=== PATIENT | male | born 1955 | race Caucasian/White ===

== ENCOUNTER 2019-07-07 10:21 | Emergency (ER) | payer BC, SELFPAY ==
[2019-07-07 10:37] VITALS: BP 139/89; PULSE 89; RESP 16; TEMP 36.6; O2SAT 98
--- NOTE | 2019-07-07 11:06 | ED.MALEGU ---
HPI - Male Genitourinary General Chief complaint: Urogenital-Male Stated complaint: FLANK PAIN/BLOOD IN URINE Time Seen by Provider: 07/07/19 11:09 Source: patient and RN notes reviewed Mode of arrival: ambulatory Limitations: no limitations History of Present Illness HPI Narrative: 64-year-old male presents with concern for 1 week history right flank pain, hematuria. Reports he has been increasing his fluid intake and drinking cranberry juice, he took Azo last night at 10 PM. He denies nausea, vomiting, abdominal pain. Reports feeling more tired than usual. MD Complaint: other (Flank pain) Related Data Home Medications Medication Instructions Recorded Confirmed lovastatin 20 mg tablet 20 mg PO QPM 03/28/19 07/07/19 metformin 500 mg tablet 500 mg PO BID 03/28/19 07/07/19 Allergies Allergy/AdvReac Type Severity Reaction Status Date / Time No Known Allergies Allergy Verified 07/07/19 10:41 Review of Systems Review of Systems: Narrative: CONSTITUTIONAL: Denies malaise, chills, sweats, or fever. Reports fatigue CARDIOVASCULAR: Denies chest pain, palpitations, or edema. RESPIRATORY: Denies dyspnea. GASTROINTESTINAL: Denies abdominal pain, nausea, vomiting, diarrhea, bloody, or mucous stools. GENITOURINARY: Denies dysuria, frequency, urgency, penile discharge, testicular redness, pain, swelling. Reports right flank pain and hematuria. SKIN: Denies bruising MUSCULOSKELETAL: Reports right flank pain, denies other back pain, myalgia. NEUROLOGIC: Denies numbness, weakness, or headache. All systems reviewed & are unremarkable except as noted in HPI and below PMFSH Social History Social History (System 05/09/19 @ 09:56 by Cece Rosales) Smoking status: Former smoker Smoking end date: 05/03/94 Alcohol intake: current Comments At time of signature, agree with nursing past medical, surgical, social and family history. There is no relevant family history pertinent to the presenting complaint Exam Narrative: Exam Narrative: GENERAL: Well-appearing, well-nourished, and in no acute distress. HEAD: Normocephalic. EYES: PERRLA, conjunctivae clear. NECK: Supple. No lymphadenopathy CHEST: Clear to auscultation. No respiratory distress. HEART: Regular rate and rhythm. No murmur heard. Normal peripheral pulses. ABDOMEN: Soft, nontender upon palpation, nondistended, normal active bowel sounds, no palpable or pulsatile masses, no guarding. No CVA tenderness SKIN: Warm, dry, no rash. NEURO: Alert and oriented x3. PSYCH: Normal mood and affect Course Course Emergency Course: Discussed with patient potential of nephrolithiasis versus urinary tract infection. Discussed limited diagnostic capability at the [facility] and option of transferring to ER following up with his primary care provider for reevaluation. Patient reports he has had an infection in the past, and his symptoms are similar. Patient understands reasons to follow-up in the ER or go to his primary care doctor. Patient is aware of diagnosis, understands and agrees to treatment plan. Anticipatory guidance given. Patient agrees to follow-up as directed and is aware of reasons to seek care at the emergency department. Portions of this record may have been created with voice recognition software Vital Signs Vital signs: Vital Signs Temperature 98 F 07/07/19 10:37 Pulse Rate 89 07/07/19 10:37 Respiratory Rate 16 07/07/19 10:37 Blood Pressure 139/89 07/07/19 10:37 Pulse Oximetry 98 07/07/19 10:37 Temperature 98 F 07/07/19 10:37 Pulse Rate 89 07/07/19 10:37 Respiratory Rate 16 07/07/19 10:37 Blood Pressure 139/89 07/07/19 10:37 Pulse Oximetry 98 07/07/19 10:37 Reviewed. Patient has current diagnosis of hypertension. MDM - Male Genitourinary MDM Narrative Medical decision making narrative: Exam findings and UA show no acute concerns or changes; patient is non-toxic appearing and is in no distress. Patient is appropriat
== END 2019-07-07 11:31 | disposition home or self-care (01) ==
PROVIDERS: Emergency Provider Nurse Practitioner; PCP Emergency Medicine
DX: R10.9 Unspecified abdominal pain (principal); Z87.891 Personal history of nicotine dependence; E78.00 Pure hypercholesterolemia, unspecified; I10 Essential (primary) hypertension; E11.9 Type 2 diabetes mellitus without complications
CPT/HCPCS: 81003; 87086; 99213; G0463

== ENCOUNTER 2020-12-24 02:09 | Day surgery (SDC) | payer MEDICARE, SELFPAY ==
[2020-12-17 14:00] VITALS: BMI 29.0
--- NOTE | 2020-12-23 13:35 | WPDANESEPPF ---
Anes - Initial Pre Proc Eval Procedure: Operation Date: 12/24/20 08:30 Proposed Procedures p Screening Colonoscopy - Matias Giraldo MD Date/Time: 12/23/20 13:35 Surgeon: Matias Giraldo MD Pre Op Diagnosis: neoplasm screening Patient Data Age: 65 Gender: M Height: 1.85 m Weight: 100 kg Allergies Allergy/AdvReac Type Severity Reaction Status Date / Time No Known Allergies Allergy Verified 12/24/20 07:23 Home Medications Medication Instructions Recorded Confirmed Type lovastatin 20 mg tablet 20 mg PO QPM 03/28/19 12/24/20 History metformin 1,000 mg tablet 1,000 mg PO BID #180 tablet 08/20/20 12/24/20 Rx lisinopril-hydrochlorothiazide 1 tablet PO DAILY 12/17/20 12/24/20 History Patient hx anesthesia problems: none Family hx anesthesia problems: none PMFSH Past Medical History Medical History (Updated 12/23/20 @ 13:35 by Felix Castillo DO) Depression Diabetes mellitus HLD (hyperlipidemia) Hypertension Vitamin D deficiency disease Family History Family History Father Cerebrovascular accident Family history of diabetes mellitus in first degree relative Patient's father is Mother Cerebrovascular accident Family history of diabetes mellitus in first degree relative Patient's mother is Sibling Patient's sister is in good health Patient's brother is in good health Social History Social History Smoking packs per day: 1 Smoking cigarettes per day: 20.0 Years smoked: 15 Smoking pack-years: 15.00 Smoking status: Former smoker Tobacco type: cigarettes Smoking end date: 05/03/94 Alcohol intake: current Substance use: current Substance use type: marijuana Other substance usage details: OCC. Living arrangements: with family Spiritual care concerns: No Anes - Eval Final PreProcedure Day of Procedure 12/23/20 13:35 Patient weight: overweight Heart: regular rate and rhythm Lungs: clear to auscultation and normal air movement Airway: Mallampati scale class II Neurological: alert and oriented Last oral intake: >/= 8 hours ASA classification: III Emergent: no Anesthetic plan: proceed Anesthesia type and monitoring: general GIVS and standard monitoring Informed Consent: The patient's anesthetic plan and its attendant risks and benefits were discussed with the patient/family/POA. Questions were solicited and answers provided to the satisfaction of the patient/family/POA.
[2020-12-24 07:24] VITALS: BP 139/98; PULSE 108; RESP 17; TEMP 36; O2SAT 98; BMI 28.5
[2020-12-24] MEDS: LACTATED RINGERS 1,000 ML 150 ML IV CONT (07:29)
[2020-12-24 07:30] LABS: Glucose Point of Care 323 mg/dl (65-105)
--- NOTE | 2020-12-24 07:55 | SUR.PREOP ---
Pt's blood glucose was 323 this morning. Pt takers metformin at home, has not taken in [address] Castillo made aware. No new orders at this time.
--- NOTE | 2020-12-24 08:40 | PM.HPGS ---
History of Present Illness History of Present Illness Consent: Risks, benefits, and alternatives have been discussed and questions answered. Patient agrees to proceed with procedure. Chief complaint: neoplasm screening Narrative: Eder Ballard is a 65 year old male here for screening colonoscopy, last one 10 years ago Review of Systems Constitutional: Constitutional: Denies headache(s) and Denies weakness Eyes: Eyes: Denies blurry vision ENT: Reports Normal hearing present, Denies headache(s) and Denies neck pain Cardiovascular: Cardiovascular: Denies chest pain and Denies dyspnea Respiratory: Respiratory: Denies dyspnea Gastrointestinal: Gastrointestinal: Reports no additional gastrointestinal complaints Genitourinary: Genitourinary: Denies dysuria Musculoskeletal: Musculoskeletal: Denies neck pain Integumentary/Breasts: Skin/Breast: Denies dry skin Neurologic: Reports Normal hearing present, Denies headache(s) and Denies weakness Psychiatric: Psychiatric: Denies anxiety Endocrine: Endocrine: Denies change in body appearance Hematologic/Lymphatic: Hematologic/Lymphatic: Denies easy bleeding Allergic/Immunologic: Allergic/Immunologic: Denies urticaria PMFSH Past Medical History Medical History (Updated 12/23/20 @ 13:35 by Felix Castillo DO) Depression Diabetes mellitus HLD (hyperlipidemia) Hypertension Vitamin D deficiency disease Family History Family History Father Cerebrovascular accident Family history of diabetes mellitus in first degree relative Patient's father is Mother Cerebrovascular accident Family history of diabetes mellitus in first degree relative Patient's mother is Sibling Patient's sister is in good health Patient's brother is in good health Social History Social History Smoking packs per day: 1 Smoking cigarettes per day: 20.0 Years smoked: 15 Smoking pack-years: 15.00 Smoking status: Former smoker Tobacco type: cigarettes Smoking end date: 05/03/94 Alcohol intake: current Substance use: current Substance use type: marijuana Other substance usage details: OCC. Living arrangements: with family Spiritual care concerns: No Meds Home Medications and Allergies Home Medications Medication Instructions Recorded Confirmed Type lovastatin 20 mg tablet 20 mg PO QPM 03/28/19 12/24/20 History metformin 1,000 mg tablet 1,000 mg PO BID #180 tablet 08/20/20 12/24/20 Rx lisinopril-hydrochlorothiazide 1 tablet PO DAILY 12/17/20 12/24/20 History Allergies Allergy/AdvReac Type Severity Reaction Status Date / Time No Known Allergies Allergy Verified 12/24/20 07:23 Vital Signs Vital Signs - 24 hr 12/24/20 07:24 Temperature 96.8 F L Pulse Rate 108 H Respiratory Rate 17 Blood Pressure 139/98 H Pulse Oximetry 98 Exam Const: General: comfortable and no acute distress HENMT: General nose exam: Normal nares present Eyes: General: appearance normal, both eyes and all related structures Neck: Neck: no JVD Resp: Auscultation: clear to auscultation bilaterally Cardio: Rate: regular rate Rhythm: regular rhythm GI: Inspection: non-distended GI Palp: Yes Soft to palpation Skin: General skin exam: normal color Neuro: General: gait normal Speech: normal speech Extrem: General: normal to inspection Psych: Mental Status: mental status grossly normal Assessment and Plan Assessment and plan (1) Colon cancer screening: Code(s): Z12.11 - Encounter for screening for malignant neoplasm of colon Status: Acute Assessment and Plan: colonoscopy
[2020-12-24 09:12] VITALS: BP 101/68; PULSE 84; RESP 25; O2SAT 96
[2020-12-24 09:22] VITALS: BP 111/68; PULSE 71; RESP 21; O2SAT 98
[2020-12-24 09:32] VITALS: BP 100/50; PULSE 79; RESP 16; O2SAT 100
== END 2020-12-24 09:45 | disposition home or self-care (01) ==
PROVIDERS: PCP Emergency Medicine; Visit Provider Internal Medicine Gastroenterology
PROC: 0DJD8ZZ Inspection of Lower Intestinal Tract, Via Natural or Artificial Opening Endoscopic (ICD-10-PCS; CPT 45378; principal; 2020-12-24 08:30)
DX: Z12.11 Encounter for screening for malignant neoplasm of colon (principal); D12.2 Benign neoplasm of ascending colon; D12.5 Benign neoplasm of sigmoid colon; D12.0 Benign neoplasm of cecum; K63.5 Polyp of colon; K57.30 Diverticulosis of large intestine without perforation or abscess without bleeding; K64.8 Other hemorrhoids; F32.9 Major depressive disorder, single episode, unspecified; E11.9 Type 2 diabetes mellitus without complications; E78.5 Hyperlipidemia, unspecified; I10 Essential (primary) hypertension; E55.9 Vitamin D deficiency, unspecified; F17.210 Nicotine dependence, cigarettes, uncomplicated; F12.90 Cannabis use, unspecified, uncomplicated; Z79.84 Long term (current) use of oral hypoglycemic drugs
CPT/HCPCS: 45380; 45385; 82948; 88305; J2704; J7120

== ENCOUNTER 2021-07-14 08:30 | Outpatient (RCR) | payer MEDICARE, SELFPAY ==
[2021-04-18 09:08] VITALS: PULSE 73
== END 2021-07-14 10:03 | disposition home or self-care (01) ==
LOC: ANHCPREHAB 08:30
PROVIDERS: PCP Emergency Medicine; Visit Provider Internal Medicine Cardiovascular Disease
DX: Z95.5 Presence of coronary angioplasty implant and graft (principal)
CPT/HCPCS: 93798

== ENCOUNTER 2022-08-18 11:47 | Outpatient (CLI) | payer MEDICARE, SELFPAY ==
--- NOTE | 2022-08-18 11:56 | ECG_ITS ---
Measurements Intervals [place] Rate: 62 P: 70 [place]: 152 QRS: 44 QRSD: 111 T: 50 QT: 401 QTc: 409 Interpretive Statements SINUS RHYTHM INCOMPLETE RIGHT BUNDLE BRANCH BLOCK [90+ ms QRS DURATION, TERMINAL R IN V1/V2, 40+ ms S IN I/aVL/V4/V5/V6] NO PREVIOUS ECG AVAILABLE FOR COMPARISON Electronically Signed On 08-18-2022 17:59:20 CDT by Arnaldo Barth M.D.
== END 2022-08-18 11:48 | disposition home or self-care (01) ==
PROVIDERS: PCP Emergency Medicine; Visit Provider Emergency Medicine
DX: I49.9 Cardiac arrhythmia, unspecified (principal); I45.10 Unspecified right bundle-branch block
CPT/HCPCS: 93005

== ENCOUNTER 2022-08-24 13:06 | Outpatient (CLI) | payer MEDICARE, SELFPAY ==
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
--- NOTE | ~2022-08-24 | CT_ITS ---
EXAMINATION: CT lung screening DATE: 08/24/2022 13:25 INDICATION: Personal history nicotine dependence, prior smoker with 25 pack year history TECHNIQUE: Computed tomography (CT) of the chest was performed without intravenous contrast. The dose -length product (DLP) was 149.25 mGy-cm. Automated exposure control and iterative reconstruction tech MOMENTFACE SROque were employed. COMPARISON: None FINDINGS: There is mild emphysema. No suspicious pulmonary nodules are identified. No pathologically enlarged thoracic lymph nodes are identified. The heart size is normal. There is calcified coronary a rtery atherosclerosis. Bilateral gynecomastia is noted. There is mild thoracic spondylosis. IMPRESSION: 1. Lung-RADS category 1: Negative. Continue annual screening with noncontrast low-dose chest CT in 12 months. Reviewed, dictated and finalized at location B. IMPRESSION: 1. Lung-RADS category 1: Negative. Continue annual screening with noncontrast l ow-dose chest CT in 12 months.
== END 2022-08-24 13:07 | disposition home or self-care (01) ==
LOC: ANHIMG 13:10
PROVIDERS: PCP Emergency Medicine; Visit Provider Emergency Medicine
DX: G45.9 Transient cerebral ischemic attack, unspecified (principal); Z12.2 Encounter for screening for malignant neoplasm of respiratory organs; Z87.891 Personal history of nicotine dependence
CPT/HCPCS: 70450; 71271

== ENCOUNTER 2024-03-26 08:28 | Emergency (ER) | payer MEDICARE, SELFPAY ==
[2024-03-26] VITALS (7 sets, daily range): BP systolic 131–139; BP diastolic 75–90; PULSE 64–73; RESP 16–18; TEMP 36.4–36.7; O2SAT 97–100
--- NOTE | ~2024-03-26 | XR_ITS ---
EXAMINATION: XR chest 2V DATE: 03/26/2024 09:01 INDICATION: Dizziness and weakness TECHNIQUE: frontal and lateral views of the chest were obtained. COMPARISON: Chest CT dated 08/24/2022 FINDINGS: Unchanged left lower lobar linear discoid atelectasis/scarring on the lateral projection. No other ai rspace opacities, pulmonary edema, pleural effusion or pneumothorax. The cardiomediastinal silhouette is normal. Mild thoracic spondylosis. IMPRESSION: 1. Unchanged mild linear discoid atelectasis/scarring in the basilar left lower lobe. Reviewed, dictated and finalized at location A. ISHING EDITOR
--- NOTE | 2024-03-26 08:37 | ECG_ITS ---
Test Date: 2024-03-26 08:39:45 Measurements Intervals [place] Rate: 72 P: 79 NV: 148 QRS: 62 QRSD: 102 T: 35 QT: 405 QTc: 446 Interpretive Statements SINUS RHYTHM INCOMPLETE RIGHT BUNDLE BRANCH BLOCK BASELINE ARTIFACT- I, II, III, AVR, AVL, AVF, V1-V6 BORDERLINE ECG No previous ECG available for comparison Electronically Signed On 03-27-2024 08:30:28 SURGICAL PHYSICIAN ASSISTANT by Alexander Leal D.O.
[2024-03-26 08:49] LABS: Basophils Percent Auto 0.4 % (0.2-1.2); Eosinophils Absolute Auto 0.1 K/mm3 (0-0.3); Hematocrit 40.6 % (42.0-52.0); Immature Granulocyte Absolute 0.02 K/mm3 (0.00-0.031); Immature Granulocyte Percent A 0.3 % (0-0.5); Lymphocytes Absolute Auto 2.21 K/mm3 (0.9-3.2); Lymphocytes Percent Auto 30.2 % (18.3-44.2); Mean Corpuscular HGB Conc 34.5 g/dl (32-36); Mean Corpuscular Hemoglobin 29.4 pg (26-34); Mean Corpuscular Volume 85.3 fl (80-100); Mean Platelet Volume 9.2 fl (7.4-10.4); Monocytes Absolute Auto 0.7 K/mm3 (0.1-0.6); Monocytes Percent Auto 9.2 % (2.6-8.5); Neutrophils Absolute Auto 4.3 K/mm3 (1.3-6.7); Neutrophils Percent Auto 58.9 % (45.5-73.1); Platelet Count Result 320 k/mm3 (150-375); Red Blood Count 4.76 M/mm3 (4.6-6.20); Red Cell Distribution Width 12.5 % (11.5-14.5); White Blood Count 7.3 K/mm3 (4.5-10.0)
[2024-03-26 08:59] LABS: Alanine Aminotransferase 39 U/L (6-50); Albumin Level 4.4 g/dL (3.5-5.1); Alkaline Phosphatase 41 U/L (38-126); Anion Gap 10 mmol/L (4-12); Aspartate Amino Transferase 32 U/L (17-59); Bilirubin,Total 0.7 mg/dL (0.2-1.3); Blood Urea Nitrogen 19 mg/dL (9-20); Calcium 9.5 mg/dL (8.4-10.2); Carbon Dioxide 21 mmol/L (22-30); Chloride 106 mmol/L (98-107); Estimated CRCL calculation 86 ml/min; Estimated Glomerular Filt Rate > 60; Glucose 202 mg/dL (65-110); Potassium 4.1 mmol/L (3.4-5.0); Sodium 137 mmol/L (137-145)
[2024-03-26] MEDS: ONDANSETRON INJ 4 MG/2 ML VIAL IV PUSH (09:06)
[2024-03-26] MEDS: SODIUM CHLORIDE 0.9% IV 1,000 ML 999 ML IV CONT (09:06)
[2024-03-26] MEDS: MECLIZINE HCL 25 MG TABLET PO (09:06)
--- NOTE | 2024-03-26 10:09 | PC.NURSE ---
Pt states improvement of symptoms after medication
--- NOTE | 2024-03-26 10:30 | PC.NURSE ---
Dr. Metzger performed Elpley maneuver with pt. Pt reports dizziness worsen with maneuvers.
--- NOTE | 2024-03-26 10:33 | ED_ITS ---
HPI - General Adult General Chief complaint: Dizziness Stated complaint: dizzy Time Seen by Provider: 03/26/24 08:37 History of Present Illness HPI narrative: Patient is a 69-year-old male who presents ER with dizziness. Spinning in nature. Associated with feeling flushed and nauseous. Worse with lying backwards. Has had similar symptoms in the past. No alleviating factors today. No focal weakness or numbness in arm or leg. Related Data Home Medications Medication Instructions Recorded Confirmed aspirin 81 mg tablet 81 mg PO DAILY 04/18/21 02/21/24 carvedilol 6.25 mg tablet 6.25 mg PO BID 04/18/21 02/21/24 clopidogrel 75 mg tablet 75 mg PO DAILY 04/18/21 02/21/24 rosuvastatin 40 mg tablet 40 mg PO DAILY 04/18/21 02/21/24 Allergies Allergy/AdvReac Type Severity Reaction Status Date / Time No Known Allergies Allergy Verified 03/26/24 08:29 Review of Systems Review of Systems: All systems reviewed & are unremarkable except as noted in HPI and below Constitutional: Constitutional: Reports no additional constitutional complaints ENT: Reports system reviewed and no additional complaints, except as do cumented Cardiovascular: Cardiovascular: Reports no additional cardiovascular complaints Respiratory: Respiratory: Reports no additional respiratory complaints PMFSH Past Medical History Medical History Depression Diabetes mellitus HLD (hyperlipidemia) Hypertension Near syncope Right flank pain Vitamin D deficiency disease Family History Family History Father Family history of diabetes mellitus in first degree relative Patient's father is Cerebrovascular accident Mother Family history of diabetes mellitus in first degree relative Patient's mother is Cerebrovascular accident Sibling Patient's brother is in good health Patient's sister is in good health Other CAD (coronary artery disease) Social History Social History Smoking packs per day: 1 Smoking cigarettes per day: 20.0 Years smoked: 15 Smoking pack-years: 15.00 Smoking status: Former smoker Tobacco type: cigarettes Second hand tobacco smoke exposure: No Smoking end date: 05/03/87 Alcohol intake: current Substance use: current Substance use type: marijuana Other substance usage details: OCC. Do You Feel Safe in your Home?: Yes Lack of Transportation: YES Lack of Food: Never True Current Housing: I Have Housing Concerned About Future Housing: No Difficulty Paying Gas/Electric Bills: No Difficulty Paying for Meds: No Currently Unemployed: No Education: Associate Degree Difficulty w/ Childcare or Family Care: No Living arrangements: with family Spiritual care concerns: No Exam Narrative: GENERAL: Well-appearing, well-nourished, and in no acute distress. HEAD: Normocephalic, atraumatic. EYES: PERRL and EOMI. ENT: Mucous membranes moist. TMs normal bilaterally. CHEST: Clear to auscultation. No respiratory distress. HEART: Regular rate and rhythm. Normal peripheral pulses. ABDOMEN: Soft, nontender, nondistended. EXTREMITIES: Normal range of motion. No edema. SKIN: Warm, dry, no rash. NEURO: No focal deficits. Alert and oriented x3. No upper extremity drift. Dizziness worsens with plain backwards. Ambulates with steady gait. PSYCH: Normal mood and affect. Course Course Emergency Course: Reports dizziness is 3/10 8/10 after taking meclizine. Ambulates much better and feels like he sometimes pulls to the right. He reports that he is rated go home. Will provide antiemetics and meclizine for home. Vital Signs Vital signs: Vital Signs Temperature 97.6 F 03/26/24 08:31 Pulse Rate 72 03/26/24 08:31 Respiratory Rate 16 03/26/24 08:31 Blood Pressure 138/75 03/26/24 08:31 Pulse Oximetry 99 03/26/24 08:31 Oxygen Delivery Room Air 03/26/24 08:31 Temperature 97.6 F 03/26/24 09:16 Pulse Rate 71 03/26/24 09:47 Respiratory Rate 16 03/26/24 09:16 Blood Pressure 131/84 03/26/24 09:47 Pulse Oximetry 97 03/26/24 09:16 Oxygen Delivery Room Air 03/26/24 08:31 Medical Decision Making Vital Signs Vital Signs: Vital Signs Temperature 97.6 F 03/26/24 08:31 Pulse Rate 72 03/26/24 08:31 Respiratory Rate 16 03/26/24 08:31 Blood Pressure 138/75 03/26/24 08:31 Pulse Oximetry 99 03/26/24 08:31 Oxygen Delivery Room Air 03/26/24 08:31 Temperature 97.6 F 03/26/24 09:16 Pulse Rate 71 03/26/24 09:47 Respiratory Rate 16 03/26/24 09:16 Blood Pressure 131/84 03/26/24 09:47 Pulse Oximetry 97 03/26/24 09:16 Oxygen Delivery Room Air 03/26/24 08:31 Lab Data 03/26/24 08:42 03/26/24 08:42 Labs: Lab Results 03/26/24 Range/Units 08:42 WBC 7.3 (4.5-10.0) K/mm3 RBC 4.76 (4.6-6.20) M/mm3 Hgb 14.0 (14.0-18.0) g/dL Hct 40.6 L (42.0-52.0) % MCV 85.3 (80-100) fl MCH 29.4 (26-34) pg MCHC 34.5 (32-36) g/dl RDW 12.5 (11.5-14.5) % Plt Count 320 (150-375) k/mm3 MPV 9.2 (7.4-10.4) fl Immature Gran % (Auto) 0.3 (0-0.5) % Neut % (Auto) 58.9 (45.5-73.1) % Lymph % (Auto) 30.2 (18.3-44.2) % [place] % (Auto) 9.2 H (2.6-8.5) % Eos % (Auto) 1.0 (0-4.4) % Baso % (Auto) 0.4 (0.2-1.2) % Lymph # (Auto) 2.21 (0.9-3.2) K/mm3 [place] # (Auto) 0.7 H (0.1-0.6) K/mm3 Eos # (Auto) 0.1 (0-0.3) K/mm3 Baso # (Auto) 0.0 (0.0-0.1) K/mm3 Abs Immat Gran (auto) 0.02 (0.00-0.031) K/mm3 Absolute Neuts (auto) 4.3 (1.3-6.7) K/mm3 Absolute Nucleated RBC 0.000 (0.0-0.012) K/mm3 Nucleated RBC % 0.0 (0.0-0.2) % Sodium 137 (137-145) mmol/L Potassium 4.1 (3.4-5.0) mmol/L Chloride 106 (98-107) mmol/L Carbon Dioxide 21 L (22-30) mmol/L Anion Gap 10 (4-12) mmol/L BUN 19 (9-20) mg/dL Creatinine 0.80 (0.7-1.3) mg/dL Estim Creat Clear Calc 86 ml/min Estimated GFR > 60 (59 - ) Glucose 202 H (65-110) mg/dL Calcium 9.5 (8.4-10.2) mg/dL Total Bilirubin 0.7 (0.2-1.3) mg/dL AST 32 (17-59) U/L ALT 39 (6-50) U/L Alkaline Phosphatase 41 (38-126) U/L Total Protein 8.0 (6.3-8.2) g/dL Albumin 4.4 (3.5-5.1) g/dL Imaging Data Radiologist's impression: ITS Impressions Chest X-Ray 03/26/24 09:11 IMPRESSION: 1. Unchanged mild linear discoid atelectasis/scarring in the basilar left lower lobe. Discharge Plan Discharge Clinical Impression: Vertigo Patient Disposition: Home, Self-Care Condition: Stable Instructions: Vertigo (ED) Additional Instructions: return the ER if you have focal weakness in arm or leg, you have new slurred speech, you lose consciousness, you have additional concerns. Prescriptions: New ondansetron 4 mg tablet,disintegrating 4 mg PO Q6H PRN (Reason: nausea and vomiting) Qty: 10 0RF meclizine 12.5 mg tablet 12.5 mg PO TID PRN (Reason: motion sickness) Qty: 14 0RF No Action icosapent ethyl [Vascepa] 1 gram capsule 2 g PO BID Qty: 360 1RF carvedilol 6.25 mg Tablet 6.25 mg PO BID clopidogrel 75 mg Tablet 75 mg PO DAILY Low-Dose Aspirin 81 mg Tablet 81 mg PO DAILY rosuvastatin 40 mg Tablet 40 mg PO DAILY ondansetron 4 mg tablet,disintegrating 4 mg PO Q6H PRN (Reason: nausea and vomiting) Qty: 30 0RF tamsulosin 0.4 mg capsule See Rx Instructions .ROUTE .COMPLEX Qty: 90 2RF Dose Instruction: TAKE 1 CAPSULE BY MOUTH DAILY Rx Instructions: TAKE 1 CAPSULE BY MOUTH DAILY dutasteride 0.5 mg capsule See Rx Instructions .ROUTE .COMPLEX Qty: 90 2RF Dose Instruction: TAKE 1 CAPSULE BY MOUTH DAILY Rx Instructions: TAKE 1 CAPSULE BY MOUTH DAILY metformin 1,000 mg tablet See Rx Instructions .ROUTE .COMPLEX Qty: 180 2RF Dose Instruction: TAKE 1 TABLET BY MOUTH TWICE DAILY Rx Instructions: TAKE 1 TABLET BY MOUTH TWICE DAILY lisinopril-hydrochlorothiazide 20-12.5 mg tablet See Rx Instructions .ROUTE .COMPLEX Qty: 90 2RF Dose Instruction: TAKE 1 TABLET BY MOUTH DAILY Rx Instructions: TAKE 1 TABLET BY MOUTH DAILY Januvia 50 mg tablet See Rx Instructions .ROUTE .COMPLEX Qty: 90 2RF Dose Instruction: TAKE 1 TABLET BY MOUTH DAILY Rx Instructions: TAKE 1 TABLET BY MOUTH DAILY tadalafil 5 mg tablet See Rx Instructions .ROUTE .COMPLEX Qty: 30 2RF Dose Instruction: TAKE 1 TABLET BY MOUTH DAILY Rx Instructions: TAKE 1 TABLET BY MOUTH DAILY Ozempic 0.25 mg or 0.5 mg (2 mg/3 mL) pen injector See Rx Instructions .ROUTE .COMPLEX Qty: 3 0RF Dose Instruction: ADMINISTER 0.5 MG UNDER THE SKIN WEEKLY. BEGIN AFTER 4 WEEKS OF 0.25 MG DOSE Rx Instructions: ADMINISTER 0.5 MG UNDER THE SKIN WEEKLY. BEGIN AFTER 4 WEEKS OF 0.25 MG DOSE Follow-up/Referrals: Hermilo Liz MD [Primary Care Provider] - 1 Week
--- NOTE | 2024-03-26 10:38 | PC.NURSE ---
Pt ambulated around nurses station with minimal dizziness.
== END 2024-03-26 10:55 | disposition home or self-care (01) ==
PROVIDERS: Emergency Provider Emergency Medicine; PCP Emergency Medicine
DX: R42 Dizziness and giddiness (principal); I10 Essential (primary) hypertension; E11.9 Type 2 diabetes mellitus without complications; E78.5 Hyperlipidemia, unspecified; E55.9 Vitamin D deficiency, unspecified; Z87.891 Personal history of nicotine dependence; Z79.82 Long term (current) use of aspirin; Z79.02 Long term (current) use of antithrombotics/antiplatelets; Z79.899 Other long term (current) drug therapy; Z79.84 Long term (current) use of oral hypoglycemic drugs; Z79.85 Long-term (current) use of injectable non-insulin antidiabetic drugs; I45.10 Unspecified right bundle-branch block
CPT/HCPCS: 36415; 71046; 80053; 85025; 93005; 96361; 96374; 99284; A9270; J2405; J7030

== ENCOUNTER 2025-03-20 08:43 | Outpatient (CLI) | payer MEDICARE, SELFPAY ==
--- NOTE | ~2025-03-20 | US_ITS ---
EXAM/PROCEDURE: US art doppler w press LE BI HISTORY: Y COMPARISON: None available. TECHNIQUE: ELVIS FINDINGS: Right and left brachial systolic pressure readings are 131 and 136 Right and left distal thigh pressure readings are 165 and 155 Right and left popliteal pressure readings are 166 and 176 Right and left posterior tibial pressure readings are 162 and 166 Right and left dorsalis pedis pressure readings are 129 and 150 Right and left ABIs are 1.19 and 1.22 Right and left TBI's are 0.92 and 0.76 Plethysmography waveforms appears slightly broadened. IMPRESSION: Both ABIs greater than 1.0. Slight elevation of the left ABIs are 1.22 could be associated with diabetic or calcified peripheral artery disease. Reviewed, dictated and finalized at location A. ER SERVICES REPRESENTATIVE
== END 2025-03-20 08:44 | disposition home or self-care (01) ==
PROVIDERS: PCP Emergency Medicine; Visit Provider Emergency Medicine
DX: R93.89 Abnormal findings on diagnostic imaging of other specified body structures (principal); I73.9 Peripheral vascular disease, unspecified
CPT/HCPCS: 93923

== ENCOUNTER 2025-04-02 10:41 | Outpatient (CLI) | payer MEDICARE, SELFPAY ==
--- NOTE | ~2025-04-02 | MR_ITS ---
EXAMINATION: MR lumbar spine wo/w con DATE: 04/02/2025 11:23 INDICATION: Lumbar intervertebral discs disorders TECHNIQUE: Magnetic resonance imaging (MRI) of the lumbar spine was performed without and with 15 mL Multihance intravenous contrast. Sequences included sagittal T2-weighted FSE, sagittal T2-weighted FS FSE, and sagittal and axial T1-weighted FSE. Postcontrast sequences included axial T2-weighted FSE, sagittal T1-weighted FSE, and axial and sagittal T1-weighted FS FSE. COMPARISON: None FINDINGS: Alignment is normal. Vertebral body heights are normal. Normal marrow signal. Disc desiccation with mild disc height loss at T11-12 and with annular fissures and minimal disc height loss at L3-L4 through L5-S1. The conus medullaris terminates at L1. There is normal signal in the caudal spinal cord. There is likely synovial enhancement along the margins of the bilateral L4-L5 and L5 is 1 facet joints likely related to significant osteoarthritis which will be further detailed below. Paravertebral soft tissues are otherwise unremarkable. No other abnormal enhancing lesions identified. The following disc levels are specifically discussed: T12-L1: The disc does not extend beyond the endplate margin. There is mild left facet joint osteoarthritis. There is no neural foraminal stenosis. There is no central canal stenosis. L1-L2: Annular fissure and minimal left paracentral disc protrusion. There is mild bilateral facet joint osteoarthritis. There is no neural foraminal stenosis. There is no central canal stenosis. L2-L3: The disc does not extend beyond the endplate margin. There is mild bilateral facet joint osteoarthritis. There is minimal left neural foraminal stenosis. There is no central canal stenosis. L3-L4: Disc is mildly bulging. There is mild bilateral facet joint osteoarthritis. There is mild bilateral neural foraminal stenosis. There is minimal central canal stenosis. L4-L5: Disc is mildly bulging. There is severe bilateral facet joint osteoarthritis. There is mild bilateral neural foraminal stenosis. There is mild central canal stenosis lung with mild narrowing of the left and right lateral recesses. L5-S1: Annular fissure and minimal central to right paracentral disc protrusion. There is moderate left and severe right facet joint osteoarthritis. There is minimal bilateral neural foraminal stenosis. There is . central canal stenosis. IMPRESSION: 1. 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 Reviewed, dictated and finalized at location A. [employer] IMPRESSION: 1. Minimal to mild lumbar and lower thoracic spondylosis with severe facet oste oarthritis bilaterally at L4-L5 and on the right at L5-S1.
== END 2025-04-02 10:42 | disposition home or self-care (01) ==
LOC: MICIMG 10:42
PROVIDERS: PCP Emergency Medicine; Visit Provider Emergency Medicine
DX: M51.86 Other intervertebral disc disorders, lumbar region (principal); M47.894 Other spondylosis, thoracic region; M47.896 Other spondylosis, lumbar region
CPT/HCPCS: 72158; A9577